=== PATIENT | male | born 1935 | race Caucasian/White ===

== ENCOUNTER 2024-06-19 19:15 | Inpatient (IN) | payer MEDICARE, BC, OTHER, SELFPAY ==
[2024-06-19] VITALS (10 sets, daily range): BP systolic 113–161; BP diastolic 47–70; BMI 23.6
[2024-06-19 15:07] LABS: % Immature Granulocytes 0.3 % (0-0.5); % Lymphocytes 15.4 % (20.5-51.1); % Monocytes 12.5 % (1.7-9.3); % Neutrophils 66.8 % (42.2-75.2); Absolute Basophils 0.1 10^3/uL (0-0.2); Absolute Eosinophils 0.3 10^3/uL (0-0.7); Absolute Lymphocytes 1.2 10^3/uL (1.2-3.4); Absolute Neutrophils 5.3 10^3/uL (1.4-6.5); Hematocrit 26.2 % (39.0-52.0); Hemoglobin 9.1 g/dL (13.0-18.0); Mean Corp Hgb Conc. 34.7 g/dL (33.0-37.0); Mean Corpuscular Hgb 31.4 pg (27.0-31.0); Mean Corpuscular Volume 90.3 fL (80.0-94.0); Mean Platelet Volume 9.7 fL (7.4-10.4); Nucleated Red Blood Cells % 0 % (-); Platelet Count 275 10^3/uL (130-400); Red Cell Dist. Width 14.3 % (11.5-14.5); White Blood Cell Count 7.9 10^3/uL (4.8-10.8)
[2024-06-19 15:16] LABS: COVID-19 Antigen Negative (Negative)
[2024-06-19 15:26] LABS: NT-proBNP 8760 pg/ml; Troponin I 0.021 ng/ml
[2024-06-19 15:27] LABS: ALT (SGPT) 18 U/L (0-50); AST (SGOT) 21 U/L (17-59); Albumin 3.7 g/dl (3.5-5.0); Alkaline Phosphatase 113 U/L (38-126); Blood Urea Nitrogen 35 mg/dl (9-20); Calcium 9.2 mg/dl (8.4-10.2); Carbon Dioxide 23 mmol/L (22-30); Chloride 100 mmol/L (98-107); Estimated Creatinine Clearance 18 ml/min; Glucose 238 mg/dl (70-99); Potassium 3.6 mmol/L (3.5-5.1); Sodium 136 mmol/L (135-145); Total Protein 6.9 g/dl (6.3-8.2); eGFR 20.17
[2024-06-19] MEDS: LASIX 40 MG IV (17:28)
--- NOTE | 2024-06-19 17:38 | ED.GENMED ---
History of Present Illness
General
Chief Complaint: Breathing Problem
Source: patient and spouse
Exam Limitations: none
Time Seen by Provider: 06/19/24 15:05
Nursing documentation reviewed up to this point in time: agreed with
History of Present Illness
History of Present Illness:
88-year-old male with history of hypertension, hyperlipidemia, atrial fibrillation on Eliquis, diabetes presents to the emergency room with his for evaluation of shortness of breath. Patient reports onset of symptoms about 4-5 days ago and
they have been constant and progressive since then. He reports shortness of breath with minimal exertion�he states that even bending down to pet his dog causes shortness of breath. He has had increased lower extremity edema and increasing
abdominal girth in that same period of time. He has not noted any significant cough. He has not had any chest pain. He denies any nausea, vomit, diarrhea. No fevers or chills. He cannot recall similar symptoms in the past. He has seen a
cotton sampler for atrial fibrillation however his main cotton sampler is in [place]�he lives in [place] most of the year but comes to [place] for 3 months in the summer.
Past History
Past History
ED Past Medical History: HTN and NIDDM
Social History
Tobacco: Non-smoker
Alcohol: None
Review of Systems
Review of Systems
All Other Systems: ROS reviewed and negative except as documented in HPI and ROS
Constitutional: Denies fever or chills
Respiratory: Reports trouble breathing; Denies cough
Cardiac: Denies chest pain
ABD/GI: Denies abdominal pain, nausea, vomiting or diarrhea
: Denies flank pain
Musculoskeletal: Reports edema; Denies neck pain or back pain
Neurological: Denies dizzy or headache
Phy Exam
Physical Exam
Physical Exam:
General: Awake, alert, oriented x3; no acute distress
Head: Normocephalic, atraumatic
Eyes: Conjunctiva normal, EOMI
Throat: Airway intact, handling secretions
Neck: Trachea midline, slight bilateral JVD
Lungs: Hypoxic to 86% on room air�improved to 95% on 4 L nasal cannula; respiratory acceptable, acceptable work of breathing; he has bibasilar Rales
Heart: Regular rate and rhythm, no murmurs, gallops, or rubs
Abd: Soft, mild distention with fluid wave, nontender
Neuro: No gross deficits
Skin: no rash
Extremities: Bilateral +2 edema in the lower extremities, distal extremities warm and well-perfused
Scores
Heart Failure Risk
Heart Failure Risk Score: Yes
History of Stroke or TIA: No
History of intubation for respiratory distress: No
Heart rate on ED arrival >/= 110: No
SaO2 <90% on arrival on room air: Yes
HR >/=110 during 3min walk test (or too ill to perform test): Yes
ECG has acute ischemic changes: No
Urea >/=12mmol/L (BUN 33.6mg/dL): Yes
Serum CO2>/=35mmol/L: No
Troponin I or T elevated to VT Level (0.4mg/dL): No
NT-proBNP >/=5,000ng/L (5,000pg/ml): Yes
HF Risk Score: 5
Admission Status: VERY HIGH RISK 39.8% Consider admission to hospital
Heart Score for Chest Pain Patients
STEMI patient?: Not applicable
Withdrawal Assessment of Alcohol
Withdrawal Assessment Completed?: Not applicable
Course
Orders/Labs/Results
Orders:
Orders
06/19/24 14:29
EKG [Electrocardiogram (*1)] Urgent
Reason for Study: Shortness of Breath
EKG- Treatment ONCE
06/19/24 14:38
CXR2 [CR Chest - 2 Views ] Urgent
Comment:
Reason For Exam: SOB
06/19/24 14:40
COVID-19 Antigen Urgent
Source: Nasal Swab
Complete Blood Count/With Diff Urgent
Comprehensive Metabolic Panel Urgent
NT-proBNP Urgent
Troponin I Routine
06/19/24 17:14
Furosemide [Lasix] 40 mg IV NOW STA
06/19/24 17:33
D-Dimer Urgent
06/19/24 18:07
Admit/Transfer Patient As Directed
Co-Sign Provider:
Level of Care: Inpatient admission
Assign to:: Telemetry
Physician / Group: ellen
Diagnosis: acute hypoxia
Reason for Telemetry: Subacute Heart Failure
Date to Stop Telemetry: 06/21/24
Time to Stop Telemetry: 11:00
Reason for Hospitalization: acute hypoxia
Expected length of stay greater than two midnights?: Yes
ELOS- Estimated Length of Stay in days: 3
I certify the patient meets the requirements for IP care: Yes
PRN Pain Medication Management As Directed
May give lesser potent ordered pain med per pt: Yes
preference::
Protocol:: Medication orders for pain may be administered in a
manner that supports deferring to patient preference
when the pt is:
- Requesting an ordered lesser potent pain medication.
Least to most potent pain medications are defined
as: acetaminophen < NSAID < tramadol < opioids
(morphine, oxycodone, hydromorphone).
- Requesting a lesser dose of the same medication IF
ORDERED.
- Requesting a less intrusive route of administration
if both routes are prescribed by the provider (PO <
IV).
06/19/24 18:08
Code Status As Directed
Resuscitation Status: Full Code
06/19/24 18:41
NEPHROLOGY CONSULT Routine
Consulting Provider: Mitzi Feliz
Was physician already notified: Yes
06/21/24 11:00
DC Protocol for Telemetry ONCE
Abnormal Lab Results
06/19/24 06/19/24
14:40 17:33
RBC 2.90 L 10^6/uL
(4.70-6.10)
Hgb 9.1 L g/dL
(13.0-18.0)
Hct 26.2 L %
(39.0-52.0)
MCH 31.4 H pg
(27.0-31.0)
Absolute Monos (auto) 1.0 H 10^3/uL
(0.1-0.6)
Lymphocytes % 15.4 L %
(20.5-51.1)
Monocytes % 12.5 H %
(1.7-9.3)
D-Dimer 1.34 H ug/mlFEU
(0.00-0.50)
BUN 35 H mg/dl
(9-20)
Creatinine 2.9 H mg/dL
(0.7-1.3)
Glucose 238 H mg/dl
(70-99)
06/19/24 14:40
06/19/24 14:40
Vital Signs
Initial and Last Documented VS:
Initial Vital Signs
Pulse Ox
88
06/19/24 14:28
Last Documented Vital Signs
Temp Pulse Resp BP Pulse Ox
36.7 C 54 17 144/63 95
06/19/24 14:29 06/19/24 19:30 06/19/24 19:30 06/19/24 19:02 06/19/24 19:30
MDM/Problems Addressed
Differential Diagnosis Includes:
CHF, pneumonia, bronchitis, PE less likely with patient chest pain-free and fully anticoagulated
MDM/Problems Addressed:
88-year-old male presents to the emergency room for evaluation of progressive shortness of breath, edema over the past 5 days. Arrives hypoxic requiring 4 L nasal cannula. Rest of vitals normal. Exam as above. Clinical picture most consistent
with acute CHF. Will place an IV check labs including CBC and a CMP, troponin, BNP. Check COVID swab and chest x-ray. Check an EKG. Monitor closely reassess after the above.
Labs reviewed: CBC shows mild anemia�she has a known history of anemia, prior hemoglobin was roughly 10 although this is from 2020. CMP shows creatinine 2.9�prior baseline normal in 2020 although patient says that he was told he has stage IV kidney
disease recently. His proBNP is elevated to 8700, chest x-ray shows pleural effusions and cardiomegaly consistent with acute CHF. Will plan to treat with IV Lasix. Will admit for continued treatment of acute respiratory failure secondary to acute
CHF. Case discussed with hospitalist.
Chronic conditions affecting care:
Hypertension, hyperlipidemia
*Radiology
Radiology exam reviewed: preliminary read by ED provider and radiology read reviewed
*Pulse Oximetry
Patient hypoxic: yes
*EKG
Interpreted by ED Provider?: Yes
Heart Rate: 54
Rate: bradycardiac
Rhythm: sinus
[place]: normal axis
Interval: first degree heart block
QRS Pattern: normal QRS
Ischemia: other (Nonspecific T wave abnormalities)
*Critical Care Note
Total Time (30-74mins, 75-104mins- exclusive of procedures): Not Applicable
Data Reviewed
Review of Other/Old Records Reveals: Labs and Records
Source: patient, records and spouse
Patient Management
Discussion with other providers: Hospitalist (Discussed with hospitalist)
Escalation/DeEscalation of care consider admission/obs:
Admission indicated
ED Attending Note
-
Portions of this chart may have been created with voice recognition software.� Occasional wrong word or��sound alike� substitutions may have occurred due to the inherent limitations of voice recognition software.
Discharge Plan
Departure
Patient Disposition: Admit
Date of Disposition: 06/19/24
Time of Disposition: 17:38
Admit to doctor: Do
Presentation/result/management discussed w/ accepting MD/DO: Hospitalist
Discharge Problem:
CHF exacerbation, Acute respiratory failure with hypoxia
Interventions
Interventions:
*Risk Screen - Suicide Last Done: 06/19/24 14:30
*General Assessment Last Done: 06/19/24 14:34
*Neglect/Abuse Screening Last Done: 06/19/24 14:30
ED- Fall Risk Assessment Last Done: 06/19/24 14:34
*ED COVID-19 Vaccine History Last Done: 06/19/24 14:34
ED- Cardiac Assessment Last Done: 06/19/24 14:35
ED- Pulmonary Assessment Last Done: 06/19/24 14:35
--- NOTE | 2024-06-19 17:44 | HPS.HSE ---
Addendum entered and electronically signed by Fernando Calderon MD 06/20/24 01:21:
Date of Service 06/19/24
I saw and examined the patient.
The ENVIRONMENTAL RESEARCH SCIENTIST or PA's note was reviewed and I agree with the note.
Comment:
88M HFpEF, afib eliquis, prostate cancer, type 2 diabetes, dyslipidemia, hypertension, CVA s/p thrombectomy no residual symptoms, CKD unclear baseline, p/w progressive SOB orthopnea weight gain and leg swelling for the past week. Elevated BNP 8760.
Chest x-ray noted cardiomegaly small bilateral pleural effusions. Requiring 4L in ED. Patient alternates btwn living in [place] and [place]. His premium service representative and Reference Services Head are in [place].
Physical Exam
General: No acute distress appears comfortable at this time
HEENT: NormoCephalic, Moist mucous membranes and Atraumatic
Respiratory: Lungs clear to auscultation. On 4L nasal cannula
Cardiac: S1/S2 and Regular Rhythm; No Murmur or Rub
GI: Soft, Non Tender, Non Distended and Normal Bowel Sounds; No Organomegaly
Musculoskeletal: No Clubbing, No Cyanosis, no edema lower ext's
Skin: No Rash
Neuro: AO x 3 and Nonfocal/grossly intact
Psych: Calm
# Acute respiratory failure likely secondary to CHF
# Iron deficiency
# Chronic kidney disease stage IV
# Recent ischemic stroke s/p thrombectomy February 2024 in [place]
# Type II diabetes mellitus with hyperglycemia
#Essential hypertension
# Gout
#Restless leg syndrome
# Hyperlipidemia
#Diabetic neuropathy
Daily weights I/O
IV lasix 40 mg BID
Cardio Nephro eval
cont Eliquis
PT/OT
wean O2 supplementation as tolerated
glycemic control
blood pressure control
Original Note:
Family Physician
-
Family Physician: Catalina Arceo
Chief Complaint
-
Short of breath
Weight gain
History of Present Illness
88-year-old with past medical history for heart failure, prostate cancer, type 2 diabetes, dyslipidemia, hypertension presented to us with short of breath which is worse with exertion. Patient also complained of orthopnea. Patient is requiring 2
pillows at nighttime for sleep. Patient also complained of lower extremities edema. Patient gained 45 pounds in 1 week. Stated dizziness. Patient denied headache or syncopal episode. Patient denied fever, chills, runny nose, congestion, cough.
Patient denied abdominal pain, nausea, vomiting, diarrhea. Patient denied dysuria hematuria.
In the ER noted elevated BNP. Chest x-ray with cardiomegaly with small bilateral pleural effusions. Patient received a dose of Lasix in ER. Admitting for further management. Patient requiring 4 L of oxygen.
Patient follows cardiology in [place].
Medical History
Past Medical History
Past Medical History: Reports Other
Additional Past Medical History:
Prostate cancer
Heart failure
Type 2 diabetes
Dyslipidemia
Hypertension
Recent CVA
Past Surgical History: Reports Other
Additional Past Surgical History:
Melanoma excision back of neck
Bilateral cataract surgery
Thrombectomy
Social History
Tobacco: Non-smoker
Alcohol: Former
Drug: None
Personal:
Living: With Family
Family History
Family History: Not pertinent
Allergies / Home Medications
Allergies reflects when Allergies were last updated in [facility].
Home Medications with original date entered in [facility]
Allergy/Medication List:
Allergies
Allergy/AdvReac Type Severity Reaction Status Date / Time
No Known Allergies Allergy Verified 06/19/24 14:28
Home Medications
ascorbic acid (vitamin C) 500 mg tablet (Vitamin C) 500 mg PO DAILY Supplement 06/30/20
cyanocobalamin (vitamin B-12) 1,000 mcg tablet 1,000 mcg PO DAILY Supplement 06/30/20
ferrous sulfate 325 mg (65 mg iron) tablet (FeroSul) 325 mg PO Q48H Supplement 06/30/20
cholecalciferol (vitamin D3) 25 mcg (1,000 unit) tablet 25 mcg PO DAILY ##0 07/01/20
albuterol sulfate 90 mcg/actuation aerosol inhaler 2 puff inhalation R Q4HPRN PRN sob/wheezing 06/19/24
apixaban 2.5 mg tablet (Eliquis) 2.5 mg PO BID 06/19/24
atorvastatin 80 mg tablet (Lipitor) 40 mg PO HS 06/19/24
furosemide 20 mg tablet 40 mg PO DAILY 06/19/24
gabapentin 100 mg capsule 100 mg PO BID 06/19/24
insulin aspart U-100 100 unit/mL (3 mL) subcutaneous pen (Novolog FlexPen U-100 Insulin aspart) 0 sliding scale dose SC AC 06/19/24
insulin glargine 100 unit/mL subcutaneous solution (Lantus U-100 Insulin) 8 units SC DAILY 06/19/24
magnesium 200 mg tablet 400 mg PO DAILY 06/19/24
nifedipine 30 mg tablet,extended release 30 mg PO DAILY 06/19/24
ropinirole 1 mg tablet 1 mg PO HS 06/19/24
thiamine HCl (vitamin B1) 100 mg tablet (Vitamin B-1) 100 mg PO BID 06/19/24
tiotropium 2.5 mcg-olodaterol 2.5 mcg/actuation mist for inhalation (Stiolto Respimat) 2 puff inhalation R DAILY 06/19/24
Review of Systems
-
Constitutional: Reports Weight Gain
EENT: Reports No Symptoms
Respiratory: Reports Trouble Breathing
Cardiac: Reports No Symptoms
Abdomen/GI: Reports No Symptoms
: Reports No Symptoms
Musculoskeletal: Reports No Symptoms
Skin: Reports No Symptoms
Neurological: Reports Dizzy
Endocrine: Reports No Symptoms
Hematologic/Lymphatic: Reports No Symptoms
Psych: Reports No Symptoms
Physical Exam
Vital Signs
Vital Signs
Temp Pulse Resp BP Pulse Ox
98.1 F 52 15 136/63 92
06/19/24 14:29 06/19/24 17:15 06/19/24 17:15 06/19/24 17:00 06/19/24 17:15
Physical Exam
General: Well Developed, Well Nourished and No Apparent Distress
HEENT: NormoCephalic, Moist mucous membranes and Atraumatic
Respiratory: Crackles
Cardiac: S1/S2 and Regular Rhythm; No Murmur or Rub
GI: Soft, Non Tender, Non Distended and Normal Bowel Sounds; No Organomegaly
Rectal: Deferred by Provider
Musculoskeletal: No Clubbing, No Cyanosis and Other (Bilateral lower extremities edema)
Skin: No Rash
Neuro: AO x 3 and Nonfocal/grossly intact
Psych: Calm
Laboratory Results
-
06/19/24 14:40
06/19/24 14:40
Laboratory Results
Total Bilirubin 1.0 mg/dl (0.2-1.3) 06/19/24 14:40
AST 21 U/L (17-59) 06/19/24 14:40
ALT 18 U/L (0-50) 06/19/24 14:40
Alkaline Phosphatase 113 U/L (38-126) 06/19/24 14:40
Troponin I 0.021 ng/ml 06/19/24 14:40
Data Reviewed
-
Diagnostic Radiology: Discussed with Physician
Lab Data: Labs Reviewed by me
Impression/Plan
-
# Acute respiratory failure likely secondary to CHF
-BNP 8760, COVID-negative
-Chest x-ray with cardiomegaly with small bilateral pleural effusions and adjacent atelectasis
-IV Lasix 40 Mg twice a day
-Strict TRUPTI
-Daily weight
-Fluid restriction
-Obtain echo
-Continue supplemental oxygen to keep sat 92
-Wean as tolerated
-Cardiology consult
# Iron deficiency
-Hemoglobin 9.1
-No active bleeding
-Continue to monitor hemoglobin
-Ferrous sulfate continued
# Chronic kidney disease stage IV
-Creatinine 2.9
- continue to monitor BMP
-nephro consult
# Recent ischemic stroke
-Status post thrombectomy
-Eliquis continued
# Type II diabetes mellitus with hyperglycemia
-Sliding scale continued
-Lantus 8 units at bedtime
-Carb controlled diet
#Essential hypertension
-Blood pressure stable
-Nifedipine continued with hold parameters
# Gout
-Ropinirole continued
# Hyperlipidemia
-Atorvastatin continued
#. Diabetic neuropathy. Continue gabapentin.
# DVT prophylaxis
-On Eliquis
# CODE STATUS
-Full code
[2024-06-19 18:56] LABS: D-Dimer 1.34 ug/mlFEU (0.00-0.50)
[2024-06-20] VITALS (22 sets, daily range): BP systolic 117–170; BP diastolic 56–83; PULSE 57–104; O2SAT 96; BMI 22.0
[2024-06-20 00:58] LABS: Glucose - Point of Care 138 mg/dl (70-99)
[2024-06-20] MEDS: REQUIP 1 MG PO ×2 (01:03→21:51)
[2024-06-20] MEDS: ELIQUIS 2.5 MG PO ×3 (01:03→21:51)
[2024-06-20] MEDS: LIPITOR 40 MG PO ×2 (01:03→21:51)
[2024-06-20] MEDS: NEURONTIN 100 MG PO ×3 (01:03→21:51)
[2024-06-20] MEDS: VITAMIN B1 100 MG PO ×3 (01:03→21:51)
[2024-06-20 01:32] LABS: Troponin I 0.019 ng/ml
[2024-06-20 06:25] LABS: Hematocrit 24.9 % (39.0-52.0); Hemoglobin 8.6 g/dL (13.0-18.0); Mean Corp Hgb Conc. 34.5 g/dL (33.0-37.0); Mean Corpuscular Hgb 30.7 pg (27.0-31.0); Mean Corpuscular Volume 88.9 fL (80.0-94.0); Mean Platelet Volume 9.5 fL (7.4-10.4); Platelet Count 287 10^3/uL (130-400); Red Cell Dist. Width 14.2 % (11.5-14.5)
[2024-06-20 06:37] LABS: ALT (SGPT) 16 U/L (0-50); AST (SGOT) 20 U/L (17-59); Albumin 3.7 g/dl (3.5-5.0); Alkaline Phosphatase 98 U/L (38-126); Blood Urea Nitrogen 33 mg/dl (9-20); Calcium 9.2 mg/dl (8.4-10.2); Carbon Dioxide 27 mmol/L (22-30); Chloride 101 mmol/L (98-107); Direct Bilirubin 0.3 mg/dl (0.0-0.4); Estimated Creatinine Clearance 20 ml/min; Glucose 112 mg/dl (70-99); HDL Cholesterol 63 mg/dl; LDL Cholesterol, Calculated 37 mg/dl; Magnesium 1.8 mg/dl (1.6-2.3); Potassium 3.3 mmol/L (3.5-5.1); Sodium 137 mmol/L (135-145); Total Bilirubin 1.1 mg/dl (0.2-1.3); Total Cholesterol 110 mg/dl (50-199); Total Protein 6.6 g/dl (6.3-8.2); Triglyceride 51 mg/dl (10-149); Very Low Density Lipoprotein 10 mg/dl (0-30)
[2024-06-20 06:53] LABS: Troponin I 0.031 ng/ml
[2024-06-20 07:13] LABS: TSH Reflex To Free T4 2.89 uIU/ml (0.47-4.68)
[2024-06-20 08:03] LABS: Glucose - Point of Care 109 mg/dl (70-99)
[2024-06-20] MEDS: SPIRIVA RESPIMAT 2.5 MCG 2 PUFF INH (08:06)
--- NOTE | 2024-06-20 08:10 | EDRN ---
Pt sitting upright in stretcher, BG-109, Pt provided with menu to order breakfast. Dr. Haney contacted d/t -109.
[2024-06-20] MEDS: LASIX 40 MG IV ×2 (08:15→16:02)
[2024-06-20] MEDS: MAGNESIUM OXIDE 500 MG PO (08:17)
[2024-06-20] MEDS: PROCARDIA XL (EXTENDED RELEASE) 30 MG PO (08:17)
[2024-06-20] MEDS: FEOSOL 325 MG PO (08:17)
[2024-06-20] MEDS: VITAMIN D3 (cholecalciferol) 25 MCG PO (08:18)
[2024-06-20] MEDS: VITAMIN B-12 1000 MCG PO (08:18)
--- NOTE | 2024-06-20 08:21 | CON.CAR ---
Addendum entered and electronically signed by Mesfin Mims MD 06/20/24 16:40:
88 yo male with PMH of chronic HFPEF, CKD4 admitted with acute on chronic HFPEF. Likely cardiorenal syndrome. Edema and SOB are improving. Exam with RRR, no murmurs, 1+ LE edema. Cr 2.9-->2.6 with diuresis. Echo shows EF 60-65%, mild TR, PASP 70s.
Continue IV lasix, and trend Cr, weight. Nephrology also consulted.
Original Note:
Consultation
Consultation Request
Date/Time Consultation Requested: 06/20/24 0005
Date/Time Consultation Performed: 06/20/24821
Requesting Provider: Kerry Bee
Performing Provider: Veronica BAILEY for Dr. Mims
Reason for Consultation: CHF
Medical History
-
Chief Complaint: SOB
History of Present Illness:
88 y/o male with hypertension, dyslipidemia, diabetes, RBBB, PAF on Eliquis, CKD (details unknown- nephro is in [place]), hx CVA February 2024 with thrombectomy, prostate CA, and HFpEF who is here for 5-6 days SERRATO with associated abdominal bloating, LE
edema, and 8 lb weight gain. He is on lasix 40 mg daily at home, but hasn't been urinating as much. He is admitted for CHF exacerbation and has responded well to IV lasix (edema improved, -1500 ml). He is on O2 by MN and is in no distress at the
time of my assessment.
Past Medical History
Past Medical History: Arrhythmias (RBBB, PAF), Cancer, CVA, HTN, Hypercholesterolemia, NIDDM and Renal Failure (CKD)
Social History
Tobacco: Non-Smoker
Family History
Family History: Reviewed & Not Pertinent
Allergies / Home Medications
Allergy/AdvReac Type Severity Reaction Status Date / Time
No Known Allergies Allergy Verified 06/19/24 14:28
�Medication �Instructions �Recorded �Confirmed �Type
ascorbic acid (vitamin C) 500 mg 500 mg PO DAILY Supplement 06/30/20 06/19/24 History
tablet (Vitamin C)
cyanocobalamin (vitamin B-12) 1,000 mcg PO DAILY Supplement 06/30/20 06/19/24 History
1,000 mcg tablet
ferrous sulfate 325 mg (65 mg 325 mg PO Q48H Supplement 06/30/20 06/19/24 History
iron) tablet (FeroSul)
cholecalciferol (vitamin D3) 25 25 mcg PO DAILY ##0 07/01/20 06/19/24 History
mcg (1,000 unit) tablet
albuterol sulfate 90 mcg/actuation 2 puff inhalation R Q4HPRN PRN 06/19/24 06/19/24 History
aerosol inhaler sob/wheezing
apixaban 2.5 mg tablet (Eliquis) 2.5 mg PO BID 06/19/24 06/19/24 History
atorvastatin 80 mg tablet (Lipitor) 40 mg PO HS 06/19/24 06/19/24 History
furosemide 20 mg tablet 40 mg PO DAILY 06/19/24 06/19/24 History
gabapentin 100 mg capsule 100 mg PO BID 06/19/24 06/19/24 History
insulin aspart U-100 100 unit/mL 0 sliding scale dose SC AC 06/19/24 06/19/24 History
(3 mL) subcutaneous pen (Novolog
FlexPen U-100 Insulin aspart)
insulin glargine 100 unit/mL 8 units SC DAILY 06/19/24 06/19/24 History
subcutaneous solution (Lantus
U-100 Insulin)
magnesium 200 mg tablet 400 mg PO DAILY 06/19/24 06/19/24 History
nifedipine 30 mg tablet,extended 30 mg PO DAILY 06/19/24 06/19/24 History
release
ropinirole 1 mg tablet 1 mg PO HS 06/19/24 06/19/24 History
thiamine HCl (vitamin B1) 100 mg 100 mg PO BID 06/19/24 06/19/24 History
tablet (Vitamin B-1)
tiotropium 2.5 mcg-olodaterol 2.5 2 puff inhalation R DAILY 06/19/24 06/19/24 History
mcg/actuation mist for inhalation
(Stiolto Respimat)
Review of Systems
-
History Source: Patient
All other systems: Negative unless noted
Constitutional: Weight Gain
Respiratory: Trouble Breathing
Musculoskeletal: Edema
Physical Exam
Vital Signs
Temp Pulse Resp BP Pulse Ox
98.1 F 61 18 162/74 93
06/19/24 14:29 06/20/24 08:17 06/20/24 08:07 06/20/24 08:17 06/20/24 08:07
Lab Results
06/20/24 06:03
06/20/24 06:03
Troponin I 0.031 ng/ml D 06/20/24 06:03
Cjq-K-Mropjxridwo Pept 8760 pg/ml 06/19/24 14:40
Physical Exam
General: Well Developed, Well Nourished and No Apparent Distress
HEENT: Normocephalic and Anicteric
Respiratory: Crackles (b/l bases) and Other (on O2 by NC)
Cardiac: Regular Rhythm (SB/SR)
GI: Distended (softly)
Genito-urinary: Clear Urine
Musculoskeletal: No Edema
Skin: Warm and Dry
Neuro: AO x 3
Psych: Calm
Impression / Plan
-
Dnsdo-tu-rgqbvyz HFpEF (as of echo 2019):
-repeat echo
-agree with IV diuresis, which requires intensive monitoring
-he thinks his dry weight is about 155 lbs
-hypokalemia noted- will give replacement and monitor
HTN:
-continue meds and monitor
CKD, unknown baseline:
-nephrology is consulted
-monitor with IV diuresis
Anemia:
-per primary team
PAF:
-on Eliquis per chart
-currently SB on monitor
Data Reviewed
-
EKG: Tracing Personally Visualized and interpreted (SR with 1st degree AVB, non-specific T wave abnormality)
Radiology: Report Reviewed by me (CXR: Cardiomegaly with small bilateral pleural effusions and adjacent atelectasis.)
Medical Tests (Nuc Med, Echo etc): Report Reviewed by me (echo 07/01/2020: Normal biventricular size and systolic function without regional wall motion abnormality. Estimated LVEF 55-60%. Diastolic function indeterminate. Trace mitral
regurgitation. Aortic sclerosis without stenosis.)
Labs: Labs Reviewed by me
--- NOTE | 2024-06-20 08:29 | EDRN ---
Dr. Haney contacted d/t -109, [place] held per MD request.
[2024-06-20 08:54] LABS: Glycohemoglobin (HgbA1c) 8.1 % (4.0-5.6)
--- NOTE | 2024-06-20 09:01 | W.PN.HOSP.TC ---
Today's Communication/Plan
-
IV Lasix.
Assessment / Plan
Assessment / Plan
Physical exam:
General: Acute on chronically ill
HEENT: Normocephalic, Atraumatic and Moist Mucous Membranes
Respiratory: Clear to Auscultation but few crackles in the bases; Negative Wheezes, or Rhonchi
Cardiac: Regular Rhythm and S1/S2
GI: Soft, Nontender and Nondistended
Musculoskeletal: No Clubbing, No Cyanosis and bilateral edema
Neuro: Awake, Alert and Oriented
Psych: Calm
A/P:
# Acute respiratory failure likely secondary to CHF
-BNP 8760, COVID-negative
-Chest x-ray with cardiomegaly with small bilateral pleural effusions and adjacent atelectasis
-IV Lasix 40 Mg twice a day
-Strict TRUPTI
-Daily weight
-Fluid restriction
-Obtain echo
-Continue supplemental oxygen to keep sat 92
-Wean as tolerated
-Cardiology consult appreciated
# Iron deficiency
-Hemoglobin 9.1--> 8.6
-No active bleeding
-Continue to monitor hemoglobin
-Ferrous sulfate continued
# Chronic kidney disease stage IV
-Creatinine 2.9--> 2.6
- continue to monitor BMP
-nephro consult appreciated
# Recent ischemic stroke
-Status post thrombectomy
-Eliquis continued
# Type II diabetes mellitus with hyperglycemia
-Sliding scale continued
-Lantus 8 units at bedtime
-Carb controlled diet
#Essential hypertension
-Blood pressure stable
-Nifedipine continued with hold parameters
# Gout
-Ropinirole continued
# Hyperlipidemia
-Atorvastatin continued
#. Diabetic neuropathy. Continue gabapentin.
# DVT prophylaxis
-On Eliquis
# CODE STATUS
-Full code
Anticipated Discharge: > 48 hours
Subjective/Interval History
-
Date of Service: June 20, 2024
Patient seen when he was participating with physical therapy today. Less shortness of breath. No chest pain.
Objective Data
-
Labs:
Laboratory Results
06/20/24
06:03
WBC 9.0
Hgb 8.6 L
Hct 24.9 L
Plt Count 287
Sodium 137
Potassium 3.3 L
Chloride 101
Carbon Dioxide 27
BUN 33 H
Creatinine 2.6 H
Glucose 112 H
Calcium 9.2
Total Bilirubin 1.1
AST 20
ALT 16
Alkaline Phosphatase 98
Vital Signs:
Vital Signs
Temp Pulse Resp BP Pulse Ox
98.1 F 61 18 162/74 93
06/19/24 14:29 06/20/24 08:17 06/20/24 08:07 06/20/24 08:17 06/20/24 08:07
I&O
06/19/24 06/20/24 06/21/24
06:59 06:59 06:59
Output Total 1525 / 1525
Balance -1525 / -1525
[2024-06-20 09:33] LABS: Glucose - Point of Care 113 mg/dl (70-99)
[2024-06-20] MEDS: NOVOLOG FLEXPEN-LOW RESISTANCE SC ×2 (09:33→12:38)
[2024-06-20] MEDS: LANTUS SC (09:33)
[2024-06-20] MEDS: KCL 20 MEQ PO (09:44)
--- NOTE | 2024-06-20 10:06 | W.CON.NEPH ---
Consultation
-
Date/Time Consultation Requested: 06/19/24 184
Date/Time Consultation Performed: 06/20/24 0930
Requesting Provider: Franklyn Humphrey
Performing Provider: Mitzi Childs
Reason for Consultation: VIDA vs CKD
Medical History
-
Chief Complaint: sob
History of Present Illness:
88 y/o male with hypertension on Nifedipine, dyslipidemia on statin, diabetes on insulin, RBBB, PAF on Eliquis with known bradycardia, CKD 4 (details unknown- nephro is in [place]), hx CVA, right side weakness February 2024 with thrombectomy no reported
residual deficit, prostate CA, and HFpEF on Lasix who presented on 06/19 with increasing SOB for 5-6 days with minimal exertion. He normally lives in [place] few days ago he came to visit his son. he also c/o abdominal bloating, epigastric
discomfort and decreased urine with LE edema, and 8 lb weight gain. He has diagnosis of CKD and Afib during February admit in [place]. Reportedly has stage 4 CKD and cr baseline is unknown, he was also told with bradycardia may need pacer. Per family his diet
is controlled and was not drinking much fluids. He noted to be in CHF flare and started IV lasix in ER. Cr on admit was at 2.9 and today at 2.6. He reports no cp. SOB remains same. mild nausea but no vomiting. Most of the history is obtained from
on phone.
Past Medical History
Prostate cancer
DCHF
Type 2 diabetes
Dyslipidemia
Hypertension
Recent CVA 02/2024
CKD4
Past Surgical History: Other (Melanoma excision back of neck Bilateral cataract surgery Thrombectomy for CVA)
Social History
Tobacco: Non-Smoker
Alcohol: Former
Personal:
Living: With Family
Family History
no CKD in family
Family History: Not Pertinent
Allergies / Home Medications
Allergy/AdvReac Type Severity Reaction Status Date / Time
No Known Allergies Allergy Verified 06/19/24 14:28
�Medication �Instructions �Recorded �Confirmed �Type
ascorbic acid (vitamin C) 500 mg 500 mg PO DAILY Supplement 06/30/20 06/19/24 History
tablet (Vitamin C)
cyanocobalamin (vitamin B-12) 1,000 mcg PO DAILY Supplement 06/30/20 06/19/24 History
1,000 mcg tablet
ferrous sulfate 325 mg (65 mg 325 mg PO Q48H Supplement 06/30/20 06/19/24 History
iron) tablet (FeroSul)
cholecalciferol (vitamin D3) 25 25 mcg PO DAILY Supplement ##0 07/01/20 06/19/24 History
mcg (1,000 unit) tablet
albuterol sulfate 90 mcg/actuation 2 puff inhalation R Q4HPRN PRN 06/19/24 06/19/24 History
aerosol inhaler sob/wheezing
apixaban 2.5 mg tablet (Eliquis) 2.5 mg PO BID Blood Clot 06/19/24 06/19/24 History
Prevention/Tx
atorvastatin 80 mg tablet (Lipitor) 40 mg PO HS High Cholesterol 06/19/24 06/19/24 History
furosemide 20 mg tablet 40 mg PO DAILY Fluid 06/19/24 06/19/24 History
Retention/Swelling
gabapentin 100 mg capsule 100 mg PO BID Pain 06/19/24 06/19/24 History
insulin aspart U-100 100 unit/mL 0 sliding scale dose SC AC Diabetes 06/19/24 06/19/24 History
(3 mL) subcutaneous pen (Novolog
FlexPen U-100 Insulin aspart)
insulin glargine 100 unit/mL 8 units SC DAILY Diabetes 06/19/24 06/19/24 History
subcutaneous solution (Lantus
U-100 Insulin)
magnesium 200 mg tablet 400 mg PO DAILY Supplement 06/19/24 06/19/24 History
nifedipine 30 mg tablet,extended 30 mg PO DAILY Blood Pressure 06/19/24 06/19/24 History
release
ropinirole 1 mg tablet 1 mg PO HS movement disorder 06/19/24 06/19/24 History
thiamine HCl (vitamin B1) 100 mg 100 mg PO BID Supplement 06/19/24 06/19/24 History
tablet (Vitamin B-1)
tiotropium 2.5 mcg-olodaterol 2.5 2 puff inhalation R DAILY 06/19/24 06/19/24 History
mcg/actuation mist for inhalation Lung/Breathing Issues
(Stiolto Respimat)
Review of Systems
-
All complete 12 point ROS have been inquired and found negative other than state din HPI
All other systems: Negative unless noted
Physical Exam
Vital Signs
Vital Signs
Temp Pulse Resp BP Pulse Ox
98.1 F 55 14 132/61 94
06/19/24 14:29 06/20/24 12:00 06/20/24 12:00 06/20/24 12:00 06/20/24 11:00
Lab Results
WBC 9.0 10^3/uL (4.8-10.8) 06/20/24 06:03
RBC 2.80 10^6/uL (4.70-6.10) L 06/20/24 06:03
Hgb 8.6 g/dL (13.0-18.0) L 06/20/24 06:03
Hct 24.9 % (39.0-52.0) L 06/20/24 06:03
Plt Count 287 10^3/uL (130-400) 06/20/24 06:03
Sodium 137 mmol/L (135-145) 06/20/24 06:03
Potassium 3.3 mmol/L (3.5-5.1) L 06/20/24 06:03
Chloride 101 mmol/L (98-107) 06/20/24 06:03
Carbon Dioxide 27 mmol/L (22-30) 06/20/24 06:03
BUN 33 mg/dl (9-20) H 06/20/24 06:03
Creatinine 2.6 mg/dL (0.7-1.3) H 06/20/24 06:03
eGFR 23.00 06/20/24 06:03
Glucose 112 mg/dl (70-99) H 06/20/24 06:03
Calcium 9.2 mg/dl (8.4-10.2) 06/20/24 06:03
Cxq-Z-Naplxuiarzf Pept 8760 pg/ml 06/19/24 14:40
Albumin 3.7 g/dl (3.5-5.0) 06/20/24 06:03
Abnormal Lab Results
06/19/24 06/19/24 06/20/24
14:40 17:33 00:56
RBC 2.90 L
Hgb 9.1 L
Hct 26.2 L
MCH 31.4 H
Absolute Monos (auto) 1.0 H
Lymphocytes % 15.4 L
Monocytes % 12.5 H
D-Dimer 1.34 H
Potassium
BUN 35 H
Creatinine 2.9 H
Glucose 238 H
Hemoglobin A1c
POC Glucose 138 H
06/20/24 06/20/24 06/20/24
06:03 08:02 09:31
RBC 2.80 L
Hgb 8.6 L
Hct 24.9 L
MCH
Absolute Monos (auto)
Lymphocytes %
Monocytes %
D-Dimer
Potassium 3.3 L
BUN 33 H
Creatinine 2.6 H
Glucose 112 H
Hemoglobin A1c 8.1 H
POC Glucose 109 H 113 H
06/20/24
11:44
RBC
Hgb
Hct
MCH
Absolute Monos (auto)
Lymphocytes %
Monocytes %
D-Dimer
Potassium
BUN
Creatinine
Glucose
Hemoglobin A1c
POC Glucose 143 H
CXR:
IMPRESSION:
Cardiomegaly with small bilateral pleural effusions and adjacent atelectasis.
Physical Exam
General: Awake, Alert, Oriented, AOx3 and Nontoxic
HEENT: EOMI, Anicteric and Other (JVD mid neck)
Respiratory: Normal Excursion, Nonlabored Respirations and Other (coarse BS)
Cardiac: S1/S2 and Regular Rate/Rhythm
Breast: Deferred by me
Abdomen: Soft, Nontender and Nondistended
Musculoskeletal: No Cyanosis and Edema (1+)
Skin: No Rash and Other (chr ckin changes in legs)
Neuro: Nonfocal/Grossly Intact
Psych: Appropriate
Data Reviewed
-
Radiology: Report Reviewed by me
Labs: Labs Reviewed by me, Discussed with Nurse and Discussed with Family
Assessment/Plan
-
IMP:
Acute respiratory failure likely secondary to CHF
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
Recent ischemic stroke s/p thrombectomy 02/2024 in [place]
Anemia
hypokalemia
Type II diabetes mellitus
P Afib
bradycardia
Essential hypertension
Gout
Hyperlipidemia
Diabetic neuropathy
Plan:
A/w CHF flare
known CKD 4 baseline not known, however cr improving from 2.9 to 2.6
suspect possible VIDA with CKD -cardiorenal
check baseline UA, bladder scan, not going to do aggressive w/u as it seem already done in [place]
cotn diuretics as ordered and wean O2 as possible
BPs table on home meds
follow h/h and check fe panel
daily labs and wts
avoid nephrotoxins
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
d/w pt
[2024-06-20 11:46] LABS: Glucose - Point of Care 143 mg/dl (70-99)
[2024-06-20] MEDS: KCL 40 MEQ PO (14:28)
[2024-06-20 15:57] LABS: Urine Albumin Negative (Neg - Trace); Urine Bilirubin Negative (Negative); Urine Character Clear (Clear); Urine Color Yellow; Urine Glucose Negative (Negative); Urine Ketone Negative (Negative); Urine Leukocyte Negative (Negative); Urine Nitrite Negative (Negative); Urine Occult Blood Negative (Negative); Urine Urobilinogen Negative (Neg - 1+); Urine pH 6.5 (5.0-9.0)
[2024-06-20 16:17] LABS: Protein/creatinine Ratio 0.6; Urine Protein 22 mg/dl; Urine Sodium 103 mmol/L (30-90)
[2024-06-20 16:34] LABS: Glucose - Point of Care 224 mg/dl (70-99)
--- NOTE | 2024-06-20 17:07 | CM ---
CM reviewed patient's chart. Spoke with patient at bedside. CM introduced self and role. Patient on oxygen via [place]. He does not use 02 at home. Patient is also very KAKE.
PCP: Dr. Catalina Arceo
Pharmacy: [facility] in [place]
Living situation: Patient lives with his .He lives in a split-level home. 5 steps to enter.
Finances: Patient denies any social insecurities. She is able to afford her housing, clothing, medications, food, utilities and transportation. He is a retired [employer].
DME/Ambulation: Patient ambulates independently. He utilizes a cane and also owns a walker and wheelchair.
Transportation: Patient's will provide transportation once he is discharged. Patient drives.
Agreeable to home health care?: Yes, if needed.
ANTICIPATED DISCHARGE DISPOSITION:
Return to home with , when medically stabled and weaned off 02.
CM will continue to follow case and available for further assistance.
[2024-06-20] MEDS: NOVOLOG FLEXPEN-LOW RESISTANCE 2 UNITS SC (17:53)
[2024-06-20 21:53] LABS: Glucose - Point of Care 350 mg/dl (70-99)
[2024-06-21] VITALS (7 sets, daily range): BP systolic 119–153; BP diastolic 55–73; PULSE 55; O2SAT 92; BMI 22.0
[2024-06-21 06:44] LABS: Hemoglobin 8.9 g/dL (13.0-18.0); Mean Corp Hgb Conc. 34.2 g/dL (33.0-37.0); Mean Corpuscular Hgb 30.5 pg (27.0-31.0); Mean Platelet Volume 9.4 fL (7.4-10.4); Platelet Count 284 10^3/uL (130-400); Red Blood Cell Count 2.92 10^6/uL (4.70-6.10); Red Cell Dist. Width 14.5 % (11.5-14.5); White Blood Cell Count 8.6 10^3/uL (4.8-10.8)
[2024-06-21 07:51] LABS: Glucose - Point of Care 265 mg/dl (70-99)
[2024-06-21 07:56] LABS: Blood Urea Nitrogen 35 mg/dl (9-20); Calcium 9.3 mg/dl (8.4-10.2); Carbon Dioxide 27 mmol/L (22-30); Chloride 98 mmol/L (98-107); Estimated Creatinine Clearance 19 ml/min; Glucose 258 mg/dl (70-99); Iron 21 ug/dl (49-181); Potassium 4.2 mmol/L (3.5-5.1); Sodium 136 mmol/L (135-145)
[2024-06-21] MEDS: SPIRIVA RESPIMAT 2.5 MCG 2 PUFF INH (07:59)
[2024-06-21 08:04] LABS: Percent Saturation 8 % (20-50); Total Iron Binding Capacity 247 ug/dl (261-462)
[2024-06-21] MEDS: VITAMIN B1 100 MG PO ×2 (08:53→20:38)
[2024-06-21] MEDS: MAGNESIUM OXIDE 500 MG PO (08:55)
[2024-06-21] MEDS: VITAMIN B-12 1000 MCG PO (08:56)
[2024-06-21] MEDS: PROCARDIA XL (EXTENDED RELEASE) 30 MG PO (08:56)
[2024-06-21] MEDS: ELIQUIS 2.5 MG PO ×2 (08:56→20:38)
[2024-06-21] MEDS: NEURONTIN 100 MG PO ×2 (08:56→20:38)
[2024-06-21] MEDS: LASIX 40 MG IV (08:56)
[2024-06-21] MEDS: VITAMIN D3 (cholecalciferol) 25 MCG PO (09:03)
[2024-06-21] MEDS: NOVOLOG FLEXPEN-LOW RESISTANCE 3 UNITS SC ×2 (09:17→12:52)
[2024-06-21] MEDS: LANTUS 0.08 UNITS SC (09:17)
--- NOTE | 2024-06-21 09:22 | W.PN.HOSP.TC ---
Addendum entered and electronically signed by Franklyn Haney MD 06/22/24 13:05:
Patient is in need of oxygen at 2-3 liters/minute via nasal cannula continuously due to pulse oximetry of 86% on room air at rest on 06/21. Oxygen will help to improve hypoxemia. Patient is mobile within the home. DuoNeb therapy has been tried and is
ineffective in treating hypoxemia related symptoms. Oxygen is needed to improve symptoms.
Original Note:
Today's Communication/Plan
-
Diuretics. IV iron. PT OT
Assessment / Plan
Assessment / Plan
Physical exam:
General: Acute on chronically ill
HEENT: Normocephalic, Atraumatic and Moist Mucous Membranes
Respiratory: Clear to Auscultation but few crackles in the bases; Negative Wheezes, or Rhonchi
Cardiac: Regular Rhythm and S1/S2
GI: Soft, Nontender and Nondistended
Musculoskeletal: No Clubbing, No Cyanosis and bilateral edema
Neuro: Awake, Alert and Oriented
Psych: Calm
A/P:
# Acute respiratory failure likely secondary to CHF
-BNP 8760, COVID-negative
-Chest x-ray with cardiomegaly with small bilateral pleural effusions and adjacent atelectasis
-IV Lasix 40 Mg twice a day--> will switch to torsemide. Discussed with cardiology.
-Strict TRUPTI
-Daily weight
-Fluid restriction
-Obtain echo--> EF 60 to 65%, aortic sclerosis, biatrial enlargement, severe pulmonary hypertension.
-Continue supplemental oxygen to keep sat 92
-Wean as tolerated
-Cardiology consult appreciated
-PT OT recommends skilled rehab but patient wants to go back home--> will reassess final discharge disposition with the next 24 hrs.
-Check home oxygen needs today in preparation for discharge soon.
-Discussed with at bedside
# Iron deficiency anemia
-Hemoglobin 9.1--> 8.6
-Reviewed iron storage being low. Hold oral iron for now and resume upon discharge
-Will start him on IV iron
-No active bleeding
-Continue to monitor hemoglobin
-Ferrous sulfate continued
# Chronic kidney disease stage IV
-Creatinine 2.9--> 2.6
- continue to monitor BMP
-nephro consult appreciated
# Recent ischemic stroke
-Status post thrombectomy
-Eliquis continued
# Type II diabetes mellitus with hyperglycemia
-Sliding scale continued
-Lantus 8 units at bedtime
-Carb controlled diet
#Essential hypertension
-Blood pressure stable
-Nifedipine continued with hold parameters
# Gout
-Ropinirole continued
# Hyperlipidemia
-Atorvastatin continued
#. Diabetic neuropathy. Continue gabapentin.
# DVT prophylaxis
-On Eliquis
# CODE STATUS
-Full code
Anticipated Discharge: 24 - 48 hours
Subjective/Interval History
-
Date of Service: June 21, 2024
Patient with less shortness of breath. No chest pain. On supplemental oxygen
Objective Data
-
Labs:
Laboratory Results
06/21/24
06:33
WBC 8.6
Hgb 8.9 L
Hct 26.0 L
Plt Count 284
Sodium 136
Potassium 4.2 D
Chloride 98
Carbon Dioxide 27
BUN 35 H
Creatinine 2.6 H
Glucose 258 H
Calcium 9.3
Vital Signs:
Vital Signs
Temp Pulse Resp BP Pulse Ox
98.1 F 59 16 153/71 98
06/21/24 07:32 06/21/24 08:56 06/21/24 08:02 06/21/24 08:56 06/21/24 08:02
I&O
06/20/24 06/21/24 06/22/24
06:59 06:59 06:59
Intake Total 400 / 400 240 / 240
Output Total 1525 / 1525 1550 / 1550
Balance -1525 / -1525 400 / 400 -1310 / -1310
--- NOTE | 2024-06-21 10:22 | W.PN.CD ---
Today's Communication / Plan
-
transition to torsemide 20mg daily
we will call patient for follow up
Impression / Plan
-
Oiccs-hs-rjgfdwo HFpEF
-echo here with EF 60-65%
-transition to torsemide 20mg daily
HTN:
-continue nifedipine
CKD4: stable with diuresis
Anemia:
-per primary team
Parox AFib:
-eliquis 2.5mg bid
-currently SB on monitor, with Annel
Physical Exam
Vital Signs/Labs
Vital Signs
Temp Pulse Resp BP Pulse Ox
98.1 F 59 16 153/71 98
06/21/24 07:32 06/21/24 08:56 06/21/24 08:02 06/21/24 08:56 06/21/24 08:02
06/20/24 06/21/24 06/22/24
06:59 06:59 06:59
Actual Weight 74.5 kg 69.428 kg
06/21/24 06:33
06/21/24 06:33
Magnesium 1.8 mg/dl (1.6-2.3) 06/20/24 06:03
Triglycerides 51 mg/dl (10-149) 06/20/24 06:03
LDL Cholesterol, Calc 37 mg/dl 06/20/24 06:03
VLDL Cholesterol, Calc 10 mg/dl (0-30) 06/20/24 06:03
HDL Cholesterol 63 mg/dl 06/20/24 06:03
06/19/24
14:40
Kmt-K-Kwihfdiuufx Pept 8760
LAB Results
06/19/24 06/20/24 06/20/24
14:40 00:54 06:03
Troponin I 0.021 0.019 0.031 D
Physical Exam
Constitutional: No acute distress and Comfortable
EENT: Moist mucous membranes
Cardiovascular: Pedal edema is absent, JVD pressure is normal, Systolic murmur absent and Rhythm/rate is irregular
Respiratory: Respiratory effort normal and Lungs clear to auscul.
GI: Soft, Distention absent and Flat
Neuro/Psych: AO x 3
Data Reviewed
-
Date of Service: June 21, 2024
EKG: Other (Tele: /Annel AVERY)
Echo: Report Reviewed by me
Labs: Labs Reviewed by me
[2024-06-21 11:39] LABS: Glucose - Point of Care 273 mg/dl (70-99)
--- NOTE | 2024-06-21 12:26 | W.PN.NEPH.PH ---
Today's Communication / Plan
-
wean O2
Assessment/Plan
-
IMP:
Acute respiratory failure likely secondary to CHF
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
Recent ischemic stroke s/p thrombectomy 02/2024 in [place]
Anemia
hypokalemia
Type II diabetes mellitus
P Afib
bradycardia
Essential hypertension
Gout
Hyperlipidemia
Diabetic neuropathy
Plan:
suspect he is near Cr baseline
for chronic diuretics
follow BMP
wean O2 as allowed
IV iron course
-
-
Date of Service: June 21, 2024
CC / HPI / ROS
-
Chief Complaint:
VIDA
History of Present Illness:
VIDA/Cr down to 2.6 stable
diuresed well for CHF decompensation
BP stable
remains on O2 supplemental
Review of Systems:
no CP/SOB
Labs
-
Labs:
WBC 8.6 10^3/uL (4.8-10.8) 06/21/24 06:33
RBC 2.92 10^6/uL (4.70-6.10) L 06/21/24 06:33
Hgb 8.9 g/dL (13.0-18.0) L 06/21/24 06:33
Hct 26.0 % (39.0-52.0) L 06/21/24 06:33
Plt Count 284 10^3/uL (130-400) 06/21/24 06:33
Sodium 136 mmol/L (135-145) 06/21/24 06:33
Potassium 4.2 mmol/L (3.5-5.1) D 06/21/24 06:33
Chloride 98 mmol/L (98-107) 06/21/24 06:33
Carbon Dioxide 27 mmol/L (22-30) 06/21/24 06:33
BUN 35 mg/dl (9-20) H 06/21/24 06:33
Creatinine 2.6 mg/dL (0.7-1.3) H 06/21/24 06:33
eGFR 23.00 06/21/24 06:33
Glucose 258 mg/dl (70-99) H 06/21/24 06:33
Calcium 9.3 mg/dl (8.4-10.2) 06/21/24 06:33
Yus-V-Edlzamqbusg Pept 8760 pg/ml 06/19/24 14:40
Albumin 3.7 g/dl (3.5-5.0) 06/20/24 06:03
Physical Exam
-
Vital Signs:
Vital Signs
Temp Pulse Resp BP Pulse Ox
98.5 F 53 16 119/60 97
06/21/24 11:09 06/21/24 11:09 06/21/24 11:09 06/21/24 11:09 06/21/24 11:09
Cardiovascular:: Regular rate and rhythm
Respiratory:: Bilateral: CTA
Lung Excursion:: Normal
Abdomen:: Nontender and Soft
Bowel Sounds:: Normal
Extremity Edema:: None: Bilateral:
--- NOTE | 2024-06-21 13:14 | PN.CDI ---
CDI
- -
CDI:
Physician Documentation Request
Admit Date: 06/19/24 19:15
Dear Doctor Medina,
Patient admitted for management of CHF.
Hospitalist progress note states 'Acute respiratory failure likely secondary to CHF'
Please clarify the type of respiratory failure:
Type
Respiratory failure with hypoxia
Respiratory failure with hypercapnia
Respiratory failure with hypoxia and hypercapnia
Other, please specify
Use of terms such as suspected, likely, concern for, or probable (associated with a specific diagnosis that is being evaluated, monitored, or treated as if it exists) are acceptable and can be coded in the inpatient setting, when documented at the
time of discharge.
Thank you,
Gretel Tee RN, BSN
CDI Specialist
tiger text
Please use your independent medical judgment in providing your response.
[2024-06-21] MEDS: FERRLECIT 110 MG IV (14:07)
[2024-06-21 16:37] LABS: Glucose - Point of Care 381 mg/dl (70-99)
[2024-06-21] MEDS: NOVOLOG FLEXPEN-LOW RESISTANCE 5 UNITS SC (17:50)
[2024-06-21] MEDS: REQUIP 1 MG PO (20:38)
[2024-06-21] MEDS: LIPITOR 40 MG PO (20:38)
[2024-06-21 21:26] LABS: Glucose - Point of Care 391 mg/dl (70-99)
[2024-06-22 03:53] VITALS: BP 103/50
[2024-06-22 06:00] VITALS: BMI 21.4
[2024-06-22 07:00] VITALS: BP 144/65
[2024-06-22] MEDS: SPIRIVA RESPIMAT 2.5 MCG 2 PUFF INH (07:38)
[2024-06-22 08:05] LABS: Hematocrit 26.3 % (39.0-52.0); Hemoglobin 8.9 g/dL (13.0-18.0); Mean Corp Hgb Conc. 33.8 g/dL (33.0-37.0); Mean Corpuscular Hgb 30.5 pg (27.0-31.0); Mean Corpuscular Volume 90.1 fL (80.0-94.0); Mean Platelet Volume 9.8 fL (7.4-10.4); Platelet Count 306 10^3/uL (130-400); Red Blood Cell Count 2.92 10^6/uL (4.70-6.10); Red Cell Dist. Width 14.4 % (11.5-14.5); White Blood Cell Count 7.8 10^3/uL (4.8-10.8)
[2024-06-22 08:31] LABS: Blood Urea Nitrogen 35 mg/dl (9-20); Calcium 9.6 mg/dl (8.4-10.2); Carbon Dioxide 29 mmol/L (22-30); Chloride 96 mmol/L (98-107); Estimated Creatinine Clearance 18 ml/min; Glucose 233 mg/dl (70-99); Potassium 3.9 mmol/L (3.5-5.1); Sodium 137 mmol/L (135-145); eGFR 21.98
[2024-06-22 08:44] LABS: Glucose - Point of Care 251 mg/dl (70-99)
--- NOTE | 2024-06-22 09:07 | W.PN.HOSP.TC ---
Today's Communication/Plan
-
Discharge planning.
Assessment / Plan
Assessment / Plan
Physical exam:
General: Chronically ill, no acute distress.
HEENT: Normocephalic, Atraumatic and Moist Mucous Membranes
Respiratory: Clear to Auscultation; Negative Wheezes, or Rhonchi
Cardiac: Regular Rhythm and S1/S2
GI: Soft, Nontender and Nondistended
Musculoskeletal: No Clubbing, No Cyanosis and bilateral edema
Neuro: Awake, Alert and Oriented
Psych: Calm
A/P:
# Acute respiratory failure likely secondary to acute on chronic HFpEF:
-BNP 8760, COVID-negative
-Chest x-ray with cardiomegaly with small bilateral pleural effusions and adjacent atelectasis
-IV Lasix 40 Mg twice a day--> switched to torsemide. Discussed with cardiology last evening and cleared for discharge.
-Strict TRUPTI
-Daily weight
-Fluid restriction
-Obtain echo--> EF 60 to 65%, aortic sclerosis, biatrial enlargement, severe pulmonary hypertension.
-Continue supplemental oxygen to keep sat 92
-Wean as tolerated
-Cardiology consult appreciated
-PT OT recommends skilled rehab but patient wants to go back home--> patient wants to go home. Ordered home health care but he does not want.
-Discussed with at bedside today on 06/22
-Medically ready for discharge today on 06/22 (discharge paperwork ready). Home oxygen needs ordered yesterday. Will defer to manager of case in terms of discharge needs upon discharge-if manager of case can arrange he can go home today..
# Iron deficiency anemia
-Hemoglobin 9.1--> 8.6
-Reviewed iron storage being low. Hold oral iron for now and resume upon discharge
-Will cont him on IV iron until discharge
-No active bleeding
-Continue to monitor hemoglobin
-Ferrous sulfate continued
# Chronic kidney disease stage IV
-Creatinine 2.9--> 2.6
- continue to monitor BMP
-nephro consult appreciated
# Recent ischemic stroke
-Status post thrombectomy
-Eliquis continued
# Type II diabetes mellitus with hyperglycemia
-Sliding scale continued
-Lantus 8 units at bedtime
-Carb controlled diet
#Essential hypertension
-Blood pressure stable
-Nifedipine continued with hold parameters
# Gout
-Ropinirole continued
# Hyperlipidemia
-Atorvastatin continued
#. Diabetic neuropathy. Continue gabapentin.
# DVT prophylaxis
-On Eliquis
# CODE STATUS
-Full code
Anticipated Discharge: Today
Subjective/Interval History
-
Date of Service: June 22, 2024
Patient feels better today. Less shortness of breath. Afebrile. Requires some oxygen
Objective Data
-
Labs:
Laboratory Results
06/22/24
06:47
WBC 7.8
Hgb 8.9 L
Hct 26.3 L
Plt Count 306
Sodium 137
Potassium 3.9
Chloride 96 L
Carbon Dioxide 29
BUN 35 H
Creatinine 2.7 H
Glucose 233 H
Calcium 9.6
Vital Signs:
Vital Signs
Temp Pulse Resp BP Pulse Ox
97.8 F 59 14 144/65 100
06/22/24 07:00 06/22/24 07:40 06/22/24 07:40 06/22/24 07:00 06/22/24 07:40
I&O
06/21/24 06/22/24 06/23/24
06:59 06:59 06:59
Intake Total 400 / 400 2250 / 2250
Output Total 2275 / 2275
Balance 400 / 400 -25 / -25
--- NOTE | 2024-06-22 09:10 | W.PN.NEPH.PH ---
Today's Communication / Plan
-
Fluid restriction
Assessment/Plan
-
IMP:
Acute respiratory failure likely secondary to CHF
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
Recent ischemic stroke s/p thrombectomy 02/2024 in [place]
Anemia
hypokalemia
Type II diabetes mellitus
P Afib
bradycardia
Essential hypertension
Gout
Hyperlipidemia
Diabetic neuropathy
Plan:
suspect he is near Cr baseline
On oral diuretics
follow BMP
wean O2 as allowed
IV iron course
DC planning
-
-
Date of Service: June 22, 2024
CC / HPI / ROS
-
Chief Complaint:
VIDA
History of Present Illness:
VIDA/Cr stable at 2.7
diuresed well for CHF decompensation
BP stable
remains on O2 supplemental
Review of Systems:
no CP/SOB
Labs
-
Labs:
WBC 7.8 10^3/uL (4.8-10.8) 06/22/24 06:47
RBC 2.92 10^6/uL (4.70-6.10) L 06/22/24 06:47
Hgb 8.9 g/dL (13.0-18.0) L 06/22/24 06:47
Hct 26.3 % (39.0-52.0) L 06/22/24 06:47
Plt Count 306 10^3/uL (130-400) 06/22/24 06:47
Sodium 137 mmol/L (135-145) 06/22/24 06:47
Potassium 3.9 mmol/L (3.5-5.1) 06/22/24 06:47
Chloride 96 mmol/L (98-107) L 06/22/24 06:47
Carbon Dioxide 29 mmol/L (22-30) 06/22/24 06:47
BUN 35 mg/dl (9-20) H 06/22/24 06:47
Creatinine 2.7 mg/dL (0.7-1.3) H 06/22/24 06:47
eGFR 21.98 06/22/24 06:47
Glucose 233 mg/dl (70-99) H 06/22/24 06:47
Calcium 9.6 mg/dl (8.4-10.2) 06/22/24 06:47
Glt-S-Mylnytxarhh Pept 8760 pg/ml 06/19/24 14:40
Albumin 3.7 g/dl (3.5-5.0) 06/20/24 06:03
Physical Exam
-
Vital Signs:
Vital Signs
Temp Pulse Resp BP Pulse Ox
97.8 F 59 14 144/65 100
06/22/24 07:00 06/22/24 07:40 06/22/24 07:40 06/22/24 07:00 06/22/24 07:40
Cardiovascular:: Regular rate and rhythm
Respiratory:: Bilateral: Coarse
Lung Excursion:: Normal
Abdomen:: Nontender and Soft
Bowel Sounds:: Normal
Extremity Edema:: None: Bilateral:
[2024-06-22] MEDS: LANTUS 0.08 UNITS SC (09:36)
[2024-06-22] MEDS: NOVOLOG FLEXPEN-LOW RESISTANCE 3 UNITS SC ×2 (09:36→15:01)
[2024-06-22] MEDS: MAGNESIUM OXIDE 500 MG PO (09:37)
[2024-06-22] MEDS: ELIQUIS 2.5 MG PO (09:37)
[2024-06-22] MEDS: PROCARDIA XL (EXTENDED RELEASE) 30 MG PO (09:37)
[2024-06-22] MEDS: VITAMIN B-12 1000 MCG PO (09:37)
[2024-06-22] MEDS: DEMADEX 20 MG PO (09:37)
[2024-06-22] MEDS: VITAMIN D3 (cholecalciferol) 25 MCG PO (09:37)
[2024-06-22] MEDS: VITAMIN B1 100 MG PO (09:37)
[2024-06-22] MEDS: NEURONTIN 100 MG PO (09:37)
[2024-06-22 11:00] VITALS: BP 142/72
--- NOTE | 2024-06-22 13:05 | W.DCSUMMARY ---
Discharge Summary
Discharge Data
Date of Admission: 06/19/24
Date of Discharge: 06/22/24
-
Pending Results: No
Hospital Course
Patient 88 years old male history of hypertension, hyperlipidemia, diabetes mellitus, A-fib, CKD, prostate cancer, CVA, CHF, prostate cancer, presented to the hospital with heart failure exacerbation. He was started on IV diuresis. Cardiology and
nephrology were consulted. Patient had negative balance throughout this hospital stay. He had an updated echocardiogram with EF 60 to 65% and severe pulmonary hypertension. Patient worked with physical therapy and Occupational Therapy and they
recommended skilled rehab but patient refused and he prefers to go home. We also offered home health care and patient is not keen on that idea either. He also receives IV iron infusions based on iron deficiency storage and back to his oral iron
upon discharge. His hemoglobin stable at 8.9 upon discharge. His creatinine stable at 2.7 upon discharge. Cardiology cleared him for discharge today. Diuretics were switched to oral, this time on torsemide as listed on the discharge medications.
Patient also requires oxygen and we are setting up home oxygen. Otherwise, patient is hemodynamically stable, he feels much better, and he is ready to go home today. He will be discharged in stable condition today.
Discharge duration: 35 minutes
Discharge Plan
-
Patient Disposition: Home with Home Care
Discharge Diagnosis/Procedures: Acute on chronic diastolic congestive heart failure. Chronic kidney disease stage IV. Hypoxia. Chronic iron deficiency anemia. Paroxysmal atrial fibrillation. Hypertension.
Diet: Low Cholesterol and Restrict fluids to 48 oz
Activity: As tolerated
Blood Work: Please PCP to order CBC, BMP within 1 week
Specialty Instructions: Weigh Daily- Call MD for wt gain/loss 3 lbs overnight/5 lbs in 1 week
Instructions: *CBC Heart Failure Instructions
Referrals:
Catalina Arceo MD [Family Provider] - in less than 1 week
Mitzi Feliz MD [Active] - in two to four weeks
Yared Du MD [Active] - in two to three weeks
Prescriptions:
New
torsemide 20 mg Tablet
20 mg PO DAILY 30 Days Qty: 30 0RF
Continued
cyanocobalamin (vitamin B-12) 1,000 MCG tablet
1,000 mcg PO DAILY
ascorbic acid (vitamin C) [Vitamin C] 500 MG tablet
500 mg PO DAILY
ferrous sulfate [FeroSul] 325 MG tablet
325 mg PO Q48H
cholecalciferol (vitamin D3) 25 mcg (1,000 unit) Tablet
25 mcg PO DAILY Qty: 0
atorvastatin [Lipitor] 80 mg Tablet
40 mg PO HS
ropinirole 1 mg Tablet
1 mg PO HS
thiamine HCl (vitamin B1) [Vitamin B-1] 100 mg Tablet
100 mg PO BID
nifedipine 30 mg Tablet Extended Release
30 mg PO DAILY
gabapentin 100 mg Capsule
100 mg PO BID
magnesium 200 mg Tablet
400 mg PO DAILY
insulin aspart U-100 [Novolog FlexPen U-100 Insulin] 100 unit/mL (3 mL) Insulin Pen
0 sliding scale dose SC AC
Eliquis 2.5 mg Tablet
2.5 mg PO BID
insulin glargine [Lantus U-100 Insulin] 1,000 UNITS/10 ML solution
8 units SC DAILY
albuterol sulfate 90 mcg/actuation HFA aerosol inhaler
2 puff INHALATION R Q4HPRN PRN (Reason: sob/wheezing)
Stiolto Respimat 2.5-2.5 mcg/actuation mist
2 puff INHALATION R DAILY
Discontinued
furosemide 20 MG tablet
40 mg PO DAILY
Discharge Orders:
Discharge Patient (As Directed); Ordered 06/22/24
Ordered By: Franklyn Haney
Discharge Date and Time
Discharge Date/Time: 06/22/24 17:00
Print Language: ROMANSH
[2024-06-22 13:11] LABS: Glucose - Point of Care 292 mg/dl (70-99)
--- NOTE | 2024-06-22 14:33 | CM ---
MD entered order for discharge.
Spoke with pt and in room .
Reviewed PT OT evals for SNF.
Pt and declined SNF Offered VN he declined VN .
Pt on oxygen 3 liters POX 93%.
Home oxygen test results prove pt qualifies for oxygen .
Spoke with Julieth [phone] from [facility] They can provide oxygen today.
Script and all clinical faxed to [phone],
Explained to pt and that portable oxygen to b e delivered to room and they will need to call for oxygen concentrator to be delivered to home.
They stated understanding.
RN aware of above dc plan.
IMM reviewed Pt ready for dc.
PLAN Home with no VN . Home oxygen with [facility]
[2024-06-22 15:00] VITALS: BP 130/62
[2024-06-22] MEDS: MIRALAX 17 GRAMS PO (15:00)
[2024-06-22] MEDS: COLACE 100 MG PO (15:00)
[2024-06-22] MEDS: FERRLECIT IV (15:00)
--- NOTE | 2024-06-25 09:55 | W.HF.CON ---
Heart Failure
- LV Function
Left ventricular function study result: LV Ejection fraction >40%
Ejection Fraction Percentage: 60-65
- ARNI
Patient already on ARNI: No
Heart Failure ARNI Not Indicated: LV Ejection Fraction >/= 40%
- ACEI/ARB
Patient already on ACEI/ARB: No
Heart Failure ACEI/ARB Not Indicated: LV Ejection Fraction > 40%
- Beta Danielle
Patient already on Evidence Based Beta Danielle: No
Heart Failure Evidence Based Beta Danielle Not Indicated: LV Ejection Fraction > 40%
- Mineralocorticord Receptor Antagonist
Patient already on MRA: No
Heart Failure MRA Not Indicated: LV Ejection Fraction > 40%
- SGLT-2 Inhibitor
Patient already on SGLT-2 Inhibitor: No
Heart Failure SGLT-2 Inhibitor Not Indicated: LV Ejection Fraction >40%
- Afib Anticoagulation
Patient already on Anticoagulation for Afib: Yes
- NYHA CHF Classification
NYHA CHF Classification Level: Class III - Symptoms w/ min exertion, interferes w/ nml daily activity
- ACC/AHA Stage
ACC/AHA Stage: Stage C: Symptomatic Heart Failure
== END 2024-06-22 17:00 | disposition home or self-care (01) | DRG 291 ==
LOC: 3 WEST ACU 19:15
PROVIDERS: Internal Medicine; Registered Nurse; ADMITTING PHYSICIAN Internal Medicine; ATTENDING PHYSICIAN Hospitalist; CONSULT PHYSICIAN Internal Medicine Cardiovascular Disease; EMERGENCY PHYSICIAN Emergency Medicine; FAMILY PHYSICIAN Family Medicine; OTHER PHYSICIAN Internal Medicine
DX: I13.0 Hypertensive heart and chronic kidney disease with heart failure and stage 1 through stage 4 chronic kidney disease, or unspecified chronic kidney disease (principal); I50.33 Acute on chronic diastolic (congestive) heart failure; J96.01 Acute respiratory failure with hypoxia; N18.4 Chronic kidney disease, stage 4 (severe); N17.9 Acute kidney failure, unspecified; E78.00 Pure hypercholesterolemia, unspecified; E11.22 Type 2 diabetes mellitus with diabetic chronic kidney disease; E11.65 Type 2 diabetes mellitus with hyperglycemia; E11.40 Type 2 diabetes mellitus with diabetic neuropathy, unspecified; M10.9 Gout, unspecified; I45.10 Unspecified right bundle-branch block; I48.0 Paroxysmal atrial fibrillation; E87.6 Hypokalemia; D50.9 Iron deficiency anemia, unspecified; C61 Malignant neoplasm of prostate; I27.22 Pulmonary hypertension due to left heart disease; Z85.820 Personal history of malignant melanoma of skin; Z85.46 Personal history of malignant neoplasm of prostate; Z79.899 Other long term (current) drug therapy; Z79.01 Long term (current) use of anticoagulants; Z79.4 Long term (current) use of insulin; Z11.52 Encounter for screening for COVID-19; Z86.73 Personal history of transient ischemic attack (TIA), and cerebral infarction without residual deficits
CPT/HCPCS: 71046; 80048; 80053; 80061; 81003; 82248; 82570; 82728; 82962; 83036; 83540; 83550; 83735; 83880; 84156; 84300; 84443; 84484; 85025; 85027; 85379; 87811; 93005; 93306; 94640; 96374; 97116; 97163; 97530; 99285; J2916